=== PATIENT | male | born 1930 | race Caucasian/White ===

== ENCOUNTER → 2016-09-06 | Outpatient (CLI) | payer MEDICARE ==
[~2016-09-06] MED LIST: ASPIRIN 81M81 MG/TA2 PO; B COMPLEX #11 TA1 PO; CAPSAICIN60 GM TP; CARDIZEM CD 12120 MG PO; CEPHALEXIN500 M1 PO; CORDARONE200 MG/TAB PO; COREG 6.256.25 MG/TA PO; ELIQUIS 5MG PO; GLUCOTROL 5M5 MG/TAB PO; IMDUR 30MG30 MG/TAB PO; IMDUR 60MG60 MG/TAB PO; LASIX 40MG TABL40 MG PO; LOPRESSOR 225 MG/TAB PO; MULTIPLE VITAMI1 CAP PO; NITROSTAT0.4 MG/TAB SL; PLAVIX 75MG TAB75 MG PO; PRENATAL MVI PO; PROCARDIA XL 3030 MG PO
[2016-09-06 18:03] LABS: CALCIUM 9.4 mg/dL (8.4-10.2); CREATININE, serum 1.71 mg/dL (0.66-1.25); POTASSIUM 4.6 mmol/L (3.4-5.0)
[2016-09-06 18:04] LABS: MEAN CELL VOLUME 82 fl (80.0-100.0); MEAN CORPUSCULAR HGB CONC 31 g/dl (33.0-37.0); MEAN PLATELET VOLUME 11.3 fl (7.4-10.4); PLATELET COUNT 120 K/mm3 (130-400); RED BLOOD COUNT 4.31 M/mm3 (4.20-5.60); REDCELL DISTRIBUTION WIDTH-CV 17.5 % (11.5-14.5); WHITE BLOOD COUNT 6.5 K/mm3 (4.8-10.8)
[2016-09-06 18:05] LABS: HEMATOCRIT 35.3 % (42.0-52.0); HEMOGLOBIN 11.1 g/dl (13.5-18.0); MEAN CORPUSCULAR HEMOGLOBIN 26 pg (27.0-31.0)
== END ==
LOC: COL.LAB 16:30
PROVIDERS: Internal Medicine Interventional Cardiology
DX: Z01.89 Encounter for other specified special examinations (principal)

== ENCOUNTER 2016-11-11 10:12 | Day surgery (SDC) | payer MEDICARE ==
[2016-11-11] VITALS (11 sets, daily range): BP systolic 112–171; BP diastolic 53–97; PULSE 59–81; TEMP 96.9–98.3
[~2016-11-11] VITALS: Ht 172.7 cm; Wt 72.1 kg
[~2016-11-11 10:12] MED LIST changes: -CAPSAICIN60 GM TP; -CARDIZEM CD 12120 MG PO; -CEPHALEXIN500 M1 PO; -COREG 6.256.25 MG/TA PO; -ELIQUIS 5MG PO; -GLUCOTROL 5M5 MG/TAB PO; -LASIX 40MG TABL40 MG PO; -MULTIPLE VITAMI1 CAP PO
[2016-11-11] MEDS ORDERED: COREG 6.256.25 MG/TA PO (11:19)
[2016-11-11] MEDS ORDERED: CAPSAICIN60 GM TP (11:19)
[2016-11-11] MEDS ORDERED: CARDIZEM CD 12120 MG PO (11:20)
[2016-11-11] MEDS ORDERED: GLUCOTROL 5M5 MG/TAB PO (11:21)
[2016-11-11] MEDS ORDERED: LASIX 40MG TABL40 MG PO (11:21)
[2016-11-11] MEDS ORDERED: MULTIPLE VITAMI1 CAP PO (11:22)
[2016-11-11 11:24] LABS: HEMATOCRIT 39.1 % (42.0-52.0); HEMOGLOBIN 12.7 g/dl (13.5-18.0); MEAN CELL VOLUME 84 fl (80.0-100.0); MEAN CORPUSCULAR HEMOGLOBIN 27 pg (27.0-31.0); MEAN CORPUSCULAR HGB CONC 33 g/dl (33.0-37.0); MEAN PLATELET VOLUME 10.7 fl (7.4-10.4); PLATELET COUNT 113 K/mm3 (130-400); RED BLOOD COUNT 4.63 M/mm3 (4.20-5.60); REDCELL DISTRIBUTION WIDTH-CV 14.8 % (11.5-14.5); WHITE BLOOD COUNT 7.1 K/mm3 (4.8-10.8)
[2016-11-11 11:32] LABS: PROTHROMBIN TIME 11.6 SECONDS (9.7-12.8)
[2016-11-11 11:41] LABS: CALCIUM 8.8 mg/dL (8.4-10.2); CREATININE, serum 1.49 mg/dL (0.66-1.25); POTASSIUM 4.2 mmol/L (3.4-5.0)
[2016-11-12 00:14] VITALS: BP 146/72; PULSE 62; TEMP 98.6
[2016-11-12 02:47] VITALS: BP 138/63; PULSE 55; TEMP 98.6
[2016-11-12 07:06] LABS: HEMATOCRIT 37.5 % (42.0-52.0)
[2016-11-12 07:08] VITALS: BP 137/66; PULSE 61; TEMP 98.4
[2016-11-12 07:16] LABS: HEMOGLOBIN 11.8 g/dl (13.5-18.0)
[2016-11-12] MEDS ORDERED: CEPHALEXIN500 M1 PO (10:44)
== END 2016-11-12 11:00 | disposition home or self-care (01) ==
LOC: COL.CAR 10:12 → MEDICAL 16:18 → COL.CAR 11-12 11:00
PROVIDERS: Internal Medicine Interventional Cardiology
DX: I50.22 Chronic systolic (congestive) heart failure (principal); I50.1 Left ventricular failure, unspecified; I49.5 Sick sinus syndrome; I42.9 Cardiomyopathy, unspecified; I25.10 Atherosclerotic heart disease of native coronary artery without angina pectoris; I73.9 Peripheral vascular disease, unspecified; I45.4 Nonspecific intraventricular block; I48.91 Unspecified atrial fibrillation; Z79.01 Long term (current) use of anticoagulants; Z95.1 Presence of aortocoronary bypass graft
CPT/HCPCS: OP; C1769; C1882; C1894; C1895; C1898; C1900; J0690; J1940; J2250; J3010; Q9967

== ENCOUNTER 2017-01-20 12:29 | Day surgery (SDC) | payer OTHER ==
[2017-01-20] VITALS (11 sets, daily range): BP systolic 134–153; BP diastolic 67–101; PULSE 66–91; TEMP 97.4
[~2017-01-20] VITALS: Ht 172.7 cm; Wt 73.6 kg
[~2017-01-20 12:29] MED LIST changes: +CAPSAICIN60 GM TP; +CARDIZEM CD 12120 MG PO; +CEPHALEXIN500 M1 PO; +COREG 6.256.25 MG/TA PO; +GLUCOTROL 5M5 MG/TAB PO; +LASIX 40MG TABL40 MG PO; +MULTIPLE VITAMI1 CAP PO
[2017-01-20 13:56] LABS: MEAN CELL VOLUME 82 fl (80.0-100.0); MEAN CORPUSCULAR HGB CONC 31 g/dl (33.0-37.0); MEAN PLATELET VOLUME 10.4 fl (7.4-10.4); PLATELET COUNT 156 K/mm3 (130-400); RED BLOOD COUNT 3.29 M/mm3 (4.20-5.60)
[2017-01-20] MEDS ORDERED: ELIQUIS 5MG PO (13:58)
[2017-01-20 14:00] LABS: HEMATOCRIT 26.9 % (42.0-52.0); HEMOGLOBIN 8.4 g/dl (13.5-18.0); MEAN CORPUSCULAR HEMOGLOBIN 26 pg (27.0-31.0)
[2017-01-20] MEDS ORDERED: CORDARONE200 MG/TAB PO (14:01)
[2017-01-20 14:05] LABS: CALCIUM 8.6 mg/dL (8.4-10.2); CREATININE, serum 1.81 mg/dL (0.66-1.25); INR 1.5 (0.8-3.0); POTASSIUM 4.9 mmol/L (3.4-5.0); PROTHROMBIN TIME 16.3 SECONDS (9.7-12.8)
== END 2017-01-20 18:00 | disposition home or self-care (01) ==
LOC: EUO 12:29 → COL.CAR 13:00 → EUO 18:00
PROVIDERS: Internal Medicine Interventional Cardiology
DX: I48.0 Paroxysmal atrial fibrillation (principal); I25.10 Atherosclerotic heart disease of native coronary artery without angina pectoris; I50.22 Chronic systolic (congestive) heart failure; I70.213 Atherosclerosis of native arteries of extremities with intermittent claudication, bilateral legs; E78.5 Hyperlipidemia, unspecified; Z99.2 Dependence on renal dialysis; Z95.1 Presence of aortocoronary bypass graft
CPT/HCPCS: J2250; J2310; J3010; J7030

== ENCOUNTER 2018-03-24 11:13 | Day surgery (SDC) | payer MEDICARE ==
[~2018-03-24] VITALS: Ht 172.8 cm; Wt 66.3 kg
[~2018-03-24 11:13] MED LIST changes: +ELIQUIS 5MG PO
[2018-03-24 12:51] VITALS: BP 154/87; PULSE 76; TEMP 97
[2018-03-24 13:15] LABS: POTASSIUM 4.5 mmol/L (3.4-5.0)
[2018-03-24 13:30] LABS: INR 1.1 (0.8-3.0); PROTHROMBIN TIME 12.7 SECONDS (9.7-12.8)
[2018-03-24 13:50] LABS: THYROID STIMULATING HORMONE 2.64 uIU/mL (0.465-4.680)
[2018-03-24] MEDS ORDERED: LANOX0.0625 PO (13:51)
[2018-03-24] MEDS ORDERED: LASIX 40MG TABL40 MG PO (13:52)
[2018-03-24] MEDS ORDERED: PLAVIX 75MG TAB75 MG PO (13:53)
[2018-03-24] MEDS ORDERED: FERROUSAL325 MG PO (13:54)
[2018-03-24] MEDS ORDERED: LOPRESSOR 225 MG/TAB PO (13:55)
[2018-03-24] MEDS ORDERED: VITAMIN C500 MG PO (13:56)
[2018-03-24 16:00] VITALS: BP 154/91; PULSE 69
[2018-03-24 16:15] VITALS: BP 163/76; PULSE 75
[2018-03-24 16:30] VITALS: BP 160/70; PULSE 65
[2018-03-24 17:01] VITALS: BP 160/70; PULSE 65; TEMP 97
== END 2018-03-24 17:35 ==
LOC: COL.CAR 11:13
PROVIDERS: Internal Medicine Interventional Cardiology
DX: I48.0 Paroxysmal atrial fibrillation (principal); I48.91 Unspecified atrial fibrillation; I11.0 Hypertensive heart disease with heart failure; I50.22 Chronic systolic (congestive) heart failure; I70.213 Atherosclerosis of native arteries of extremities with intermittent claudication, bilateral legs; I25.10 Atherosclerotic heart disease of native coronary artery without angina pectoris; I08.1 Rheumatic disorders of both mitral and tricuspid valves; D64.9 Anemia, unspecified; L97.521 Non-pressure chronic ulcer of other part of left foot limited to breakdown of skin; E78.5 Hyperlipidemia, unspecified; S37.009A Unspecified injury of unspecified kidney, initial encounter; I25.2 Old myocardial infarction; M19.90 Unspecified osteoarthritis, unspecified site; E11.9 Type 2 diabetes mellitus without complications; F17.210 Nicotine dependence, cigarettes, uncomplicated; Z79.01 Long term (current) use of anticoagulants; Z95.810 Presence of automatic (implantable) cardiac defibrillator; Z79.82 Long term (current) use of aspirin; Z99.2 Dependence on renal dialysis; Z95.1 Presence of aortocoronary bypass graft; Z88.8 Allergy status to other drugs, medicaments and biological substances; Z79.84 Long term (current) use of oral hypoglycemic drugs
CPT/HCPCS: J0282; J2704; J7030